=== PATIENT | male | born 1990 | race Hispanic/Latino ===

== ENCOUNTER 2024-12-25 21:58 | Emergency (ER) | payer OTHER ==
[~2024-12-25] VITALS: Ht 167.6 cm; Wt 86.2 kg
[2024-12-25 22:15] VITALS: BP 142/80; PULSE 82; RESP 20; TEMP 97.8; O2SAT 99
--- NOTE | 2024-12-25 22:15 | NUR ---
ED MD ABLE TO REDUCE L SHOULDER DISLOCATION WITHOUT MODERATE SEDATION. NO MEDICATIONS GIVEN
--- NOTE | 2024-12-25 22:20 | ERN ---
General Chief Complaint: Shoulder Injury/Pain Stated Complaint: DISLOCATED SHOULDER Time Seen by MD: 22:00 History of Present Illness Initial Comments 33-year-old male who presents for left shoulder dislocation. He had a FOOSH type fall onto the left shoulder. On arrival here to the emergency department he has a clear left shoulder dislocation, neurovascularly intact. No other injuries. Allergies: Coded Allergies: No Known Drug Allergies (Unverified Allergy, Unknown, 12/25/24) Past Medical History Past Medical History: No Pertinent History Past Surgical History: None ROS Dictation CONSTITUTIONAL: No chills, no fever, no weakness, no diaphoresis, no malaise. HEAD/FACE: No signs of trauma. EENT: No eye pain, no blurred vision, no tearing, no double vision, no ear pain, no ear discharge, no nose pain, no nasal congestion, no throat pain, no throat swelling, no mouth pain. RESPIRATORY: No cough, no orthopnea, no SOB, no stridor, no wheezing. CARDIOVASCULAR: No chest pain, no edema, no palpitations, no syncope. GASTROINTESTINAL/ABDOMINAL: No abdominal pain, no constipation, no diarrhea, no nausea, no vomiting. GENITOURINARY: No abnormal discharge, no dysuria, no frequent urination, no hematuria. No complaints of pain in the genitals. MUSCULOSKELETAL: Left shoulder pain INTEGUMENTARY: No change in color, no change in hair/nails, no dryness, no lesion, no lumps, no rash. NEUROLOGICAL/PSYCH: No anxiety, not depressed, no emotional problem, no headache, no numbness, no pre-existing deficit, no history of seizures, no tremors, no weakness. HEMATOLOGIC/LYMPHATIC: Not anemic, no history of blood clots, no apparent bleeding, no bruising, glands not swollen. All Systems Negative, Except as Noted. Physical Exam Physical Exam Dictation VITAL SIGNS: Reviewed. GENERAL APPEARANCE: Alert, oriented x3, no acute distress, fit HEAD AND FACE: Non-traumatic. EYES: PERRL, pink conjunctivas, eyelid no trauma, anterior chamber clear. EARS: Pinnas intact and no signs of trauma or erythema. Ear canals clear and no discharge. TMs no erythema. NOSE: No discharge, no bleeding. OROPHARYNX: Mouth normal, teeth no caries, tongue pink. Pharynx clear, no erythema. Tonsils no exudates, no abscesses noted. Mucous membrane moist. NECK: Supple, non-tender, no thyromegaly, no masses, no JVD, no bruits. BREAST: Deferred. CHEST: No tenderness, no crepitus, no paradoxical movement, no retractions. LUNGS: Clear, well-ventilated, symmetric, no rales, no wheezing, no rhonchi, no stridor, good breath sounds bilaterally. HEART: Regular rate, regular rhythm, no murmur, no gallops. VASCULAR: No peripheral edema. ABDOMEN: Soft, positive bowel sounds, nondistended, no guarding, nontender, no rebound, no masses no hepatomegaly, no splenomegaly, no Watkins's sign, no hernias. RECTAL: Deferred. GENITAL: Deferred. NEUROLOGICAL: Normal speech, gross motor function intact, gross sensory funct ion intact. MUSCULOSKELETAL: Neck nontender, full range of motion, back nontender, full range of motion. Left shoulder dislocation, neurovascularly intact. EXTREMITIES: Nontender, full range of motion. SKIN: Color pink, dry, no turgor, no rash, no lacerations, no abrasions, no contusions. LYMPHATICS: Deferred. MDM CC: Left shoulder pain status post injury Historian: Patient No comorbidities No limitations Differential diagnosis: Shoulder dislocation Vital signs stable No other injuries Patient has a clear left shoulder dislocation. Moderate pain. Initially I ordered an IV and pain control, but and patient requested that we try to reduce the shoulder without. Shoulder was successfully reduced without pain control. X-ray shows shoulder in place Placed in a sling We will DC door orthopedic follow up. ED Course Orders Procedure Category Date Status Time Shoulder Comp 2+Vws Lt RAD 12/25/24 Resulted 22:00 Fentanyl Citrate Pf PHA 12/25/24 Complete 0.05 Mg/Ml (Fentanyl 22:00 Propofol 20ml Vial PHA 12/25/24 Complete (Diprivan 20ml Vial) 22:00 Shoulder Ltd 1vw Lt RAD 12/25/24 Resulted 22:00 Current Medications Medications (Trade) Dose Ordered Sig/Payton Route PRN Reason Start Time Stop Time Status Last Admin Dose Admin Fentanyl Citrate (FENTanyl CITRate PF 50 MCG/ 1 ML 2ML VIAL) 100 mcg ONCE ONCE IVP 12/25/24 22:00 12/25/24 22:07 DC Propofol (DIPRivan 20ML VIAL) 100 mg ONCE ONCE IV 12/25/24 22:00 12/25/24 22:07 DC Vital Signs Date Time Temp Pulse Resp B/P (MAP) Pulse Ox O2 Delivery O2 Flow Rate FiO2 12/25/24 22:15 97.9 82 20 142/80 99 Room Air* 0 21 12/25/24 22:01 98.2 100 20 144/91 99 Room Air 0 Joint Reduction Joint Reduction : Joint Reduction Site: shoulder (L) Conscious Sedation: No Reduction Attempts: 2 Pre-Procedure NV Exam: Yes Post-Procedure NV Exam: Yes post joint reduction film: joint reduced Progress Gentle traction with scapular manipulation. Genital external rotation. Shoulder reduced successfully. Total time 5 minutes. Performed by me. DX & DISP Disposition: Discharge Departure Impression: Primary Impression: Dislocation of left shoulder joint Condition: Stable Additional Instructions: You had a left shoulder dislocation which was reduced here in the emergency department. Your shoulder joint (the ball and socket) came out of place and was put back into position in. X-rays after the reduction confirmed proper alignment. Keep your arm in the sling at all times for at least seven days. Do not lift, push, or pull anything with the your injured arm. Do not raise your arm above your shoulder level or reach behind her back. You may remove the sling briefly for gentle pendulum exercises after 3-5 days. You can take [id number] Tylenol or ibuprofen as needed for pain or discomfort. I recommend applying ice packs to the shoulder for 15-20 minutes every 4-6 hours for the next 48 hours. This will reduce pain and inflammation. I recommend that you follow up with the orthopedic surgeon within the next week or so. You may need repeat x-rays and/or rehabilitation exercises. Please return to the emergency department if you have any concerning symptoms such as severe worsening pain, numbness, tingling, or weakness in the arm, coldness or pale color of the hand, inability to move your fingers, or the shoulder appears to be dislocated again. Referrals: MARCO A BOLES MD, RYAN E DO Dec 25, 2024 22:20
--- NOTE | 2024-12-25 22:34 | HMCIMG ---
EXAM: CR left Shoulder, 1 view. CLINICAL HISTORY: Dislocated. COMPARISON: None provided. FINDINGS: Mild degenerative changes in the left acromioclavicular and glenohumeral joint. No acute fracture or aggressive appearing osseous lesion. The soft tissues are unremarkable. IMPRESSION: No acute bony changes. No evidence of dislocation. Degenerative changes in the left acromioclavicular and glenohumeral joint. /Dwight
--- NOTE | 2024-12-25 22:38 | HMCIMG ---
EXAM: CR Left Shoulder, 2 views CLINICAL HISTORY: Dislocated. COMPARISON: None provided. FINDINGS: No acute fracture or aggressive appearing osseous lesion. Unremarkable joint spaces. The soft tissues are unremarkable. IMPRESSION: No acute fracture or dislocation. /[place]
== END 2024-12-25 22:32 | disposition home or self-care (01) ==
LOC: EDH 21:58
DX: S43.005A Unspecified dislocation of left shoulder joint, initial encounter (principal); W18.39XA Other fall on same level, initial encounter; Y93.89 Activity, other specified; Y92.89 Other specified places as the place of occurrence of the external cause; Y99.8 Other external cause status
CPT/HCPCS: 23650; 73020; 73030; 99284